=== PATIENT | female | born 1975 | race Caucasian/White ===

== ENCOUNTER 2023-04-03 12:19 | Outpatient (CLI) | payer BC, SELFPAY ==
[2023-04-07 13:37] LABS: FSH 33.3 mIU/mL (***)
== END 2023-04-03 12:20 | disposition home or self-care (01) ==
LOC: ANHLAB 12:20
PROVIDERS: Visit Provider Obstetrics & Gynecology
DX: N95.1 Menopausal and female climacteric states (principal)
CPT/HCPCS: 36415; 83001

== ENCOUNTER 2024-06-29 01:14 | Day surgery (SDC) | payer BC, SELFPAY ==
[2024-06-18 15:23] VITALS: BMI 34.1
--- OUTSIDE RECORDS SUMMARY | 2024-06-29 01:17 | XMS_ITS | Clinical Summary ---
Author Organization [facility] Address [address] [place] [address] Care Team Providers Care Executive Coach Name Role Phone Ofelia Boogie MD Primary Care Provider Allergies No known active allergies Medications loratadine (CLARITIN) 10 MG tablet Take 10 mg by mouth daily. Active Glucosamine-Tyler droit-Vit C-Mn (GLUCOSAMINE CHONDROITIN COMPLX) Cap Active Multiple Vitamin (MULTIVITAMIN) capsule Take 1 capsule by mouth daily. Active Family History Medical History Relation Comments Diabetes Father Hypertension Father Diabetes Mother Hypertension Mother Relation Status Comments Father Alive Mother Alive Social History Tobacco Use Types Packs/Day Years Used Date Smoking Tobacco: Never Smokeless Tobacco: Never Alcohol Use Standard Drinks/Week Comments Yes 0 (1 standard drink = 0.6 oz pur e alcohol) SOCIALLY Comments No Sex and Gender Information Value Date Recorded Sex Assigned at Not on file Legal Sex Female 3:21 PM CDT Gender Identity Not on file Sexual Orientation Not on file Last Filed Vital Signs Vital Sign Reading Time Taken Comments Blood Pressure 112/69 12/14/2021 11:50 AM CDT Pulse 65 12/14/2021 11:50 AM CDT Temperature 37 C (98.6 F) 12/14/2021 11:25 AM CDT Respiratory Rate 14 12/14/2021 11:50 AM CDT Oxygen Saturation 99% 12/14/2021 11:50 AM CDT Inhaled Oxygen Concentration - - Weight 86.2 kg (190 lb) 12/05/2021 1:26 PM CDT Height 167.6 cm (5' 6 ) 12/05/2021 1:26 PM CDT Body Mass Index 30.67 12/05/2021 1:26 PM CDT Plan of Treatment Health Maintenance Due Date Last Done Comments Annual Physical 1976 Hepatitis C 11/21/1991 Hepatitis B Vaccines (1 of 3 - 19+ 3-dose series) 1992 Mammogram Screening 2013 Cervical Cancer Screening Pa p Smear (Age 30 to 64) Every 3 Years 12/19/2019 12/18/2016 Cervical Cancer Screening Pa p with HPV Testing (Age 30 to 64) Every 5 Years 12/18/2021 12/18/2016 Cervical Cancer Screening wi th HPV 12/18/2021 COVID-19 Vaccine ( - 2023-2 5 season) 2023 03/03/2021, 02/21/2020, 01/31/2020 Pneumococcal Vaccine: 50+ Years (1 of 1 - PCV) 11/21/2023 Zoster Vaccines (1 of 2) 11/21/2023 DTaP, Tdap and Td Vaccines ( 3 - Td or Tdap) 10/21/2030 10/21/2020, 04/19/2010 Colorectal Cancer Screening Colonoscopy (10 Years) 12/15/2031 12/14/2021, 12/14/2021 Meningococcal B Vaccine Aged Out No l onger eligible based on patient's age to complete this topic Meningococcal Vaccine Aged Out No rosi krishna eligible based on patient's age to complete this topic RSV Immunizations Under 20 Months Aged Out No longer eligible b ased on patient's age to complete this topic Procedures Procedure Name Priority Date/Time Associated Diagnosis Comments COLONOSCOPY Routine 12/14/2021 10:05 AM CDT from Last 3 Months or Most Recently Relevant to Health Maintenance Insurance Dr. Eliza [address] Care Teams Executive Coach Relationship Specialty Start Date End Date Ofelia Boogie MD [address] [facility] [address] [place] [address] PCP - General FAMILY PRACTICE 12/14/21
[2024-06-29 07:45] VITALS: BP 118/90; PULSE 95; RESP 18; TEMP 36; O2SAT 100
[2024-06-29 07:49] LABS: BEDSIDEPREGUCG Negative (Negative)
--- NOTE | 2024-06-29 07:54 | P.PNAN_ITS ---
Anes - Initial Pre Proc Eval Procedure: Operation Date: 06/29/24 09:00 Proposed Procedures p Esophagogastroduodenoscopy & Colonoscopy - Collin Garner MD Date/Time: 06/29/24 07:54 Surgeon: Collin Garner MD Pre Op Diagnosis: Iron deficiency anemia, unspecified Patient Data Age: 48 Gender: F Height: 1.65 m Weight: 91.9 kg Last Vital Signs Temp 36.0 C L 06/29/24 07:45 Pulse 95 06/29/24 07:45 Resp 18 06/29/24 07:45 BP 118/90 06/29/24 07:45 Pulse Ox 100 06/29/24 07:45 O2 Del Method Room Air 06/29/24 07:45 Allergies Allergy/AdvReac Type Severity Reaction Status Date / Time No Known Allergies Allergy Verified 06/29/24 07:43 Home Medications Medication Instructions Recorded Confirmed Type levonorgestrel (Mirena) 1 device intrauterine ONCE 06/05/23 06/18/24 History docosahexaenoic acid 200 mg 200 mg PO DAILY 04/10/24 06/29/24 History capsule ( DHA) propranolol 10 mg tablet 10 mg PO Q12H 04/10/24 06/18/24 History topiramate 25 mg tablet (Topamax) 25 mg PO BID 04/10/24 06/29/24 History apraclonidine 0.5 % eye drops 1 drp EACH EYE DAILY 06/18/24 06/29/24 History Laboratory Tests 06/29/24 07:45 POC Urine HCG, Qual Negative (Negative) Patient hx anesthesia problems: none Family hx anesthesia problems: none Results Review: All pre-operative results and documents have been reviewed as part of the pre- operative evaluation. [facility] Past Medical History Medical History No active medical problems Surgical History Surgical History No significant past surgical history Family History Family History Other Alcoholism Carcinoma of colon Depression Diabetes mellitus Heart disease Hypertension Malignant neoplasm of prostate Thyroid cancer Social History Social History Smoking status: Never smoker Alcohol intake: current Substance use: never Substance use type: does not use Do You Feel Safe in your Home?: Yes Lack of Transportation: No Lack of Food: Never True Current Housing: I Have Housing Concerned About Future Housing: No Difficulty Paying Gas/Electric Bills: No Difficulty Paying for Meds: No Currently Unemployed: No Education: Bachelor's Degree Difficulty w/ Childcare or Family Care: No Anes - Eval Final PreProcedure Day of Procedure 06/29/24 07:54 Patient weight: obese Heart: regular rate and rhythm Lungs: clear to auscultation Airway: Mallampati scale class II Neurological: alert and oriented Last oral intake: >/= 8 hours ASA classification: II Emergent: no Anesthetic plan: proceed Anesthesia type and monitoring: general GIVS and standard monitoring Results Review: All pre-operative results and documents have been reviewed as part of the pre- operative evaluation. Informed Consent: The patient's anesthetic plan and its attendant risks and benefits were discussed with the patient/family/POA. Questions were solicited and answers provided to the satisfaction of the patient/family/POA.
[2024-06-29] MEDS: LACTATED RINGERS 1,000 ML 150 ML IV CONT (08:21)
--- NOTE | 2024-06-29 08:32 | PM.HPGS ---
History of Present Illness History of Present Illness Consent: Risks, benefits, and alternatives have been discussed and questions answered. Patient agrees to proceed with procedure. Chief complaint: Iron deficiency anemia, unspecified Narrative: Linda Patel is a 48 year old female with iwona, never had egd, colonoscopy 2021 Review of Systems Review of Systems: All systems reviewed & are unremarkable except as noted in HPI and below PMFSH Past Medical History Medical History No active medical problems Surgical History Surgical History No significant past surgical history Family History Family History Other Alcoholism Carcinoma of colon Depression Diabetes mellitus Heart disease Hypertension Malignant neoplasm of prostate Thyroid cancer Social History Social History Smoking status: Never smoker Alcohol intake: current Substance use: never Substance use type: does not use Do You Feel Safe in your Home?: Yes Lack of Transportation: No Lack of Food: Never True Current Housing: I Have Housing Concerned About Future Housing: No Difficulty Paying Gas/Electric Bills: No Difficulty Paying for Meds: No Currently Unemployed: No Education: Bachelor's Degree Difficulty w/ Childcare or Family Care: No Meds Home Medications and Allergies Home Medications Medication Instructions Recorded Confirmed Type levonorgestrel (Mirena) 1 device intrauterine ONCE 06/05/23 06/18/24 History docosahexaenoic acid 200 mg 200 mg PO DAILY 04/10/24 06/29/24 History capsule ( DHA) propranolol 10 mg tablet 10 mg PO Q12H 04/10/24 06/18/24 History topiramate 25 mg tablet (Topamax) 25 mg PO BID 04/10/24 06/29/24 History apraclonidine 0.5 % eye drops 1 drp EACH EYE DAILY 06/18/24 06/29/24 History Allergies Allergy/AdvReac Type Severity Reaction Status Date / Time No Known Allergies Allergy Verified 06/29/24 07:43 Vital Signs Vital Signs - 24 hr 06/29/24 07:45 Temperature 96.8 F L Pulse Rate 95 Respiratory Rate 18 Blood Pressure 118/90 Pulse Oximetry 100 Oxygen Delivery Room Air Exam Const: General: comfortable and no acute distress HENMT: Face/Nose/Sinus: Normal nares present Neck: Neck: no JVD Resp: Auscultation: clear to auscultation bilaterally Cardio: Rate: regular rate Rhythm: regular rhythm GI: Inspection: non-distended GI Palp: Yes Soft to palpation Skin: General skin exam: normal color Neuro: General: patient oriented x3 Speech: normal speech Other: gaston's palsy Extrem: General: normal to inspection Psych: Mental Status: mental status grossly normal Assessment and Plan Assessment and plan (1) IWONA (iron deficiency anemia): Qualifiers: Iron deficiency anemia type: unspecified iron deficiency Qualified Code(s): D50.9 - Iron deficiency anemia, unspecified Code(s): D50.9 - Iron deficiency anemia, unspecified Status: Acute Assessment and Plan: egd and colonoscopy denies overt gib
[2024-06-29] MEDS: BENZOCAINE (*SP) 60 ML SPRAY CAN (HURRICAINE) 1 SPRAY MUCOUS MEM (08:36)
--- NOTE | 2024-06-29 08:49 | SUR.OPER ---
EGD ended at 08, colon began at 0848.
[2024-06-29 08:58] VITALS: BP 98/68; PULSE 90; RESP 26; O2SAT 100
[2024-06-29 09:08] VITALS: BP 100/81; PULSE 71; RESP 20; O2SAT 100
[2024-06-29 09:18] VITALS: BP 108/74; PULSE 75; RESP 2; O2SAT 100
== END 2024-06-29 09:30 | disposition home or self-care (01) ==
PROVIDERS: Anesthesiology; PCP Family Medicine; Referring Provider Nurse Practitioner Family; Visit Provider Internal Medicine Gastroenterology
PROC: 0DJ08ZZ Inspection of Upper Intestinal Tract, Via Natural or Artificial Opening Endoscopic (ICD-10-PCS; CPT 45378; principal; 2024-06-29 09:00)
DX: C7A.8 Other malignant neuroendocrine tumors (principal); D50.9 Iron deficiency anemia, unspecified; K64.8 Other hemorrhoids; K31.7 Polyp of stomach and duodenum; E66.9 Obesity, unspecified; Z68.33 Body mass index [BMI] 33.0-33.9, adult
CPT/HCPCS: 45378; 43239; 43251; 88305; 88342; J2003; J2704; J7120

== ENCOUNTER 2024-08-11 12:05 | Outpatient (CLI) | payer BC, SELFPAY ==
--- OUTSIDE RECORDS SUMMARY | 2024-08-11 12:09 | XMS_ITS | Clinical Summary ---
Author Organization [address] Address [address] [place] [address] [place] [address] Care Team Providers Care Director Of Respiratory Therapy Name Role Phone Ofelia Boogie MD Primary Care Provi george Allergies No known active allergies Medications multivitamin capsule Take 1 capsule by mouth daily Active magnesium glycinate 100 mg magnesium capsule 4 Active apraclonidine (IOPIDINE) 0.5 % ophthalmic solutionIndicat ions:Rodriguez's palsy Administer 1 drop into both eyes 2 (two) times a day 5 mL 5 04/18/19 26 Active topiramate (TOPAMAX) 50 mg tablet Take 1 tablet (50 mg total) by mouth 2 (two) times a day 60 tablet 5 5 06/25/19 26 Active Active Problems Problem Noted Date Diagnosed Date 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 We discussed low carb and weight training Assessment & Plan (10/21/2020 9:09 AM CDT): BMI Follow-up includes: nutrition counseling. Well adult exam 11/06/2018 Overview (03/03/2024): Encouraged a healthy diet, and regular physical activity to her level Health Maintenance: Last PAP: through [place] Last mammogram: 09/03- [facility] 1 Last colonoscopy: 01/02- one hyperplastic polyp- consider repeat in 5-10 years Last Tdap: up to date Last shingles- reviewed starting series Last Flu: up to date Last COVID: encouraged Assessment & Plan (03/03/2024 2:06 PM TRACTOR ENGINE ASSEMBLER): Encouraged a healthy diet, and regular physical activity to her level Health Maintenance: Last PAP: through [place] Last mammogram: 09/03- [facility] 1 Last colonoscopy: 01/02- one hyperplastic polyp- consider repeat in 5-10 years Last Tdap: up to date Last shingles- reviewed starting series Last Flu: up to date Last COVID: encouraged Assessment & Plan (10/21/2020 9:08 AM CDT): Encouraged a healthy diet, and regular physical activity to her level Wear sun screen, seat belts No texting/drinking and driving Health Maintenance: Last PAP: through Dr Heath Last mammogram: 07/2019- scheduled Last colonoscopy/cologuard: check with insurance Last Tdap: today Last Flu: encouraged Last COVID: encouraged Assessment & Plan (11/06/2018 3:19 PM CDT): Work on healthy low carb diet Healthy activity for 30 minutes daily Wear sun screen, seat belts No texting/drinking and driving Health Maintenance: Last PAP:01/2018-normal Last mammogram: 03/2018 Last DEXA: @60 Last colonoscopy/cologuard: @50 Last Tdap: 2010 Last pneumonia/Prevnar@65: Last Shingrix:@50 Last Flu: yearly Tremor 11/06/2018 Assessment & Plan (11/06/2018 3:19 PM CDT): Perez tart with labs Consider neuro vs beta xochitl if symptoms persist Vitamin D deficiency 04/08/2017 Assessment & Plan (11/06/2018 3:21 PM CDT): Lab ordered Resolved Problems Problem Noted Date Diagnosed Date Resolved Date Overweight (BMI 25.0-29.9) 11/06/2018 0 10/21/2020 Assessment & Plan (11/06/2018 3:20 PM CDT): BMI Follow-up includes: nutrition counseling. Encounters Date Type Department Care Team Description 07/28/2024 1:00 PM CDT Therapy [facility] Physical Therapy [address] [place] [address] 1st Floor [address] [place] [id number] Camille Jung, PT Rodriguez's palsy (Primary Dx) 07/23/2024 Results Follow-Up [facility] Family Medicine [address] [phone] Ofelia Boogie MD Colonoscopy 07/09/2024 Telephone [facility] Ophthalmology [address] [facility] [address] [facility], [address] [place] [phone] Dereck Yen MD 07/07/2024 10:30 AM CDT Therapy [facility] Physical Therapy [address] [place] [address] 1st Floor [address] [place] [phone] Camille Jung, PT Rodriguez's palsy (Primary Dx) 07/07/2024 8:15 AM CDT Office Visit [facility] Ophthalmology [address], [address] [place] [address] Dereck Yen MD Facial nerve spasm (Primary Dx); Myogenic ptosis of right eyelid 06/24/2024 2:30 PM CDT Office Visit [facility] Neurology [address] [facility] [address] [place] [address] Juliane Mcguire NP Tremor (Primary Dx); Rodriguez's palsy 06/22/2024 2:00 PM CDT Therapy [facility] Physical Therapy [address] [facility] 6th [place] [address] [place] [phone] Camille Jung, PT Rodriguez's palsy (Primary Dx) 06/09/2024 10:30 AM CDT Therapy [facility] Physical Therapy [address] [place] [address] Camille Jung PT Rodriguez's palsy (Primary Dx) 06/09/2024 Plan of Care Documentation [facility] Physical Therapy [address] [place] [address] 06/04/2024 Telephone [facility] Ophthalmology [facility] [address] [place] [phone] Dereck Yen MD 06/02/2024 8:30 AM CDT Procedure visit [facility] Surgery [address] [place] [address] [place] [address] Kiki Colon MD Rodriguez's palsy 05/14/2024 Orders Only [facility] Surgery [address] [place] [address] [place] [address] Kiki Colon MD Rodriguez's palsy (Primary Dx) from Last 3 Months Immunizations Immunization Administration Dates Next Due Influenza, Quadrivalent, Spl it, Preservative Free, Intramuscular 01/21/2023 Influenza, Trivalent, Preservative Free, Intramu scular 12/04/2023 Influenza, Unspecified 11/11/2017 Tdap 10/21/2020,04/19/2010 Medical History Medical History Date Comments 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 Vitamin D deficiency Family History Medical History Relation Name Comments No Known Problems Brother No Known Problems Daughter Diabetes Father Hypertension Father Prostate cancer Father Heart attack Maternal Grandfather Diabetes Maternal Grandmother Arrhythmia Mother Diabetes Mother Hyperlipidemia Mother Hypertension Mother Colon cancer Paternal Grandfather Heart attack Paternal Grandmother Thyroid cancer Sister No Known Problems Son Relation Name Status Comments Brother Alive Daughter Alive Father Alive Maternal Grandfather Maternal Grandmother Mother Alive Paternal Grandfather Paternal Grandmother Sister Alive Son Alive Social History Tobacco Use Types Packs/Day Years Used Date Smoking Tobacco: Never Smokeless Tobacco: Never Tobacco Cessation:Counseling Given: Not Answered Alcohol Use Standard Drinks/Week Comments Yes 0 (1 standard drink = 0.6 oz pur e alcohol) AUDIT-C Answer Date Recorded Q1: How often do you have a drink containing alc ohol? Monthly or less 03/03/2024 Q2: How many drinks containi ng alcohol do you have on a typical day when you are drinking? 1 or 2 03/03/2024 Q3: How often do you have si x or more drinks on one occasion? Never 03/03/2024 PHQ-2 Answer Date Recorded PHQ-2 Total Score (If total score is 3 or more points, staff should administer the PHQ-9) 1 03/03/2024 PHQ-9 Answer Date Recorded PHQ-9 Total Score 5 03/03/2024 Comments No Sex and Gender Information Value Date Recorded Sex Assigned at Not on file Legal Sex Female 8:08 PM TRACTOR ENGINE ASSEMBLER Gender Identity Female 10/20/2020 7:24 PM CDT Sexual Orientation Straight 10/20/2020 7: 24 PM CDT Obstetrics History Para Term AB IAB SAB Ectopic Multiple Livin g Live Births 3 3 3 Date Outcome GA Total Labor Labor/2nd/3rd Weight Sex Type Anes PTL Thais A1 A5 Name Clin Term Term Term Last Filed Vital Signs Vital Sign Reading Time Taken Comments Blood Pressure 90/70 06/24/2024 2:22 PM CDT Pulse 103 06/24/2024 2:22 PM CDT Temperature 36.3 C (97.4 F) 03/03/2024 1:36 PM TRACTOR ENGINE ASSEMBLER Respiratory Rate 20 06/24/2024 2:22 PM CDT Oxygen Saturation 97% 06/24/2024 2:22 PM CDT Inhaled Oxygen Concentration - - Weight 93.4 kg (206 lb) 06/24/2024 2:22 PM CDT Height 167.6 cm (5' 6) 06/24/2024 2:22 PM CDT Body Mass Index 33.25 06/24/2024 2:22 PM CDT Plan of Treatment Health Maintenance Due Date Last Done Comments Hepatitis B Screening 11/21/1991 Cervical Cancer Screening 01/13/2019 01/13/2018 Covid-19 Vaccine ( season) 2023 03/03/2021, 02/21/2020, 01/31/2020 Zoster Vaccine (1 of 2) 11/21/2023 Breast Cancer Screening-Mammogram 08/20/2024 08/21/2023, 04/11/2022, 12/21/2020, Additional history exists Influenza Vaccine (#1) 2024 , 01/21/2023, 11/11/2017 Depression Screening 03/03/2025 03/03/2024, 03/03/2024, 10/21/2020, Additional history exists Regular Well Visit/Exam 18-64 03/03/2025 03/03/2024, 10/21/2020, 10/21/2020, Additional history exists DTaP/Tdap/Td Vaccine (3 - Td or Tdap) 10/21/2030 10/21/2020, 04/19/2010 Colon Cancer Screening-Colonoscopy 06/29/2034 06/29/2024, 12/14/2021 Hepatitis C Screening Completed 03/05/2024 Pneumococcal vaccine <65 Aged Out No longer eligible based on patient's age to complete this topic Procedures Procedure Name Priority Date/Time Associated Diagnosis Comments COLONOSCOPY Routine 06/29/2024 8:41 AM CDT HEPATITIS C ANTIBODY Routine 03/05/2024 8:40 AM TRACTOR ENGINE ASSEMBLER Need for hepatitis C screening test SCREENING MAMMOGRAM BILATERAL W SONU Schedule Routine, Read Routine (OP Routine) 08/21/2023 9:00 AM CDT Screening mammogram, encounter for HM PAP SMEAR WITH HPV Routine 01/13/2018 from Last 3 Months or Most Recently Relevant to Health Maintenance Results * Colonoscopy (06/29/2024 8:41 AM CDT) Anatomical Region Laterality Modality Other us Historical Provider ENDOSCOPY PROCEDURES Nhung l Result * Hepatitis C antibody Blood (03/05/2024 8:40 AM TRACTOR ENGINE ASSEMBLER) Hep C Ab NON-REACTI VE NON-REACT JUAN ALBERTO [facility] Comment: HCV antibody was non-reactive. There is no laboratory evidence of HCV infection. In most cases, no further action is required. However, if recent HCV exposure is suspected, a test for HCV RNA (test code 73833) is suggested. For additional information please refer to http://education.PLUMgrid.Guest of a Guest/faq/RLN51v5 (This link is being provided for informational/ educational purposes only.) Blood 03/05/2024 8:40 AM TRACTOR ENGINE ASSEMBLER 03/05/2024 8:43 AM TRACTOR ENGINE ASSEMBLER Narrative [facility] - 03/10/2024 5:11 AM TRACTOR ENGINE ASSEMBLER FASTING:YES FASTING: YES us Ofelia Boogie MD LAB MICROBIOLOGY - GENERAL ORDERABLES Final Result [facility] [address] [place] [address] * Screening Mammogram Bilateral W Sonu (08/21/2023 9:00 AM CDT) Anatomical Region Laterality Modality Breast Bilateral Mammography Impressions 08/21/2023 9:25 AM CDT BI-RADS ATLAS category (overall): 1 - Negative There is no mammographic evidence of malignancy. A 1 year screening mammogram is recommended. The patient has been or will be contacted. We recommend annual screening mammography for women at average risk of breast cancer beginning at age 40, based on guidelines of the [place] [employer] (ACR Practice Parameter for the Performance of Screening and Diagnostic Mammography) and [place] [employer]. For women with and elevated risk of breast cancer, please refer to the ACR Practice Parameter for specific screening recommendations. The patient will be entered into a reminder system with a target due date of 1 year for her next screening exam. Narrative 08/21/2023 9:25 AM CDT Screening Mammogram Bilateral W Sonu: 08/21/23 The study was acquired using full field digital technology and interpreted from soft copy. 2D digital mammographic views, as well as 3D digital tomosynthesis were performed in the CC and MLO projections. CLINICAL: Screening mammogram, encounter for. No relevant medical history has been documented for this patient. No known family history of breast cancer. COMPARISONS: 04/11/2022 Screening Mammogram Bilateral W Sonu 12/21/2020 Screening Mammogram Bilateral W Sonu 07/27/2019 Diagnostic Mammogram Left W Sonu 04/02/2018 Screening Mammogram Bilateral W Sonu 02/26/2017 Screening Mammogram Bilateral W Sonu BREAST TISSUE: The breasts have scattered areas of fibroglandular density. FINDINGS: No suspicious masses, suspicious calcifications, or other suspicious findings are seen within either breast. There has been no suspicious change. us Self Screening Mammogram IMG MAMMO PROCEDURES Fi nal Result * HM PAP SMEAR WITH HPV (01/13/2018) Pap smear Normal Historical Provider HEALTH MAINTENANCE Final Result from Last 3 Months or Most Recently Relevant to Health Maintenance [place] [address] [facility] [place] [address] [facility] [employer] [facility] [place] [address] Care Teams Director Of Respiratory Therapy Relationship Specialty Start Date End Date Ofelia Boogie MD [address] [facility] [place] [address] PCP - General 04/02/18
--- OUTSIDE RECORDS SUMMARY | 2024-08-11 12:09 | XMS_ITS | Clinical Summary ---
Author Organization [facility] Address [address] [place] [address] Care Team Providers Care Service Supervisor Name Role Phone Ofelia Boogie MD Primary [...] 1:26 PM CDT Height 167.6 cm (5' 6) 12/05/2021 1:26 PM CDT Body Mass Index [...] Relevant to Health Maintenance Insurance Dr. Eliza [address] Care Teams Service Supervisor Relationship Specialty Start Date End Date Ofelia Boogie MD [address] [facility] [address] [place] [address] PCP - General FAMILY PRACTICE 12/14/21
--- OUTSIDE RECORDS SUMMARY | 2024-08-11 12:09 | XMS_ITS | Encounter Summary ---
Author Organization [facility] Facility Care Team Providers Care Defensive Driving Instructor Name Role Phone Ofelia Boogie MD Primary Care Provi george Encounter Details Date Type Department Care Team (Latest Contact Info) Description 12/24/2016 Orders Only [facility] CLINCONV ProviderUrsula MD [address] [place] [id number] Social History Tobacco Use Types Packs/Day Years Used Date Smoking Tobacco: Never Assessed Comments Unknown Sex and Gender Information Value Date Recorded Sex Assigned at Not on file Legal Sex Female 8:08 PM VOLUNTEER RECRUITER Gender Identity Female 10/20/2020 7:24 PM CDT Sexual Orientation Straight 10/20/2020 7: 24 PM CDT documented as of this encounter Plan of Treatment Not on file documented as of this encounter Procedures Procedure Name Priority Date/Time Associated Diagnosis Comments SCAN - PATHOLOGY 04/16/2017 12:0 0 AM VOLUNTEER RECRUITER documented in this encounter Results * SCAN - PATHOLOGY (04/16/2017 12:00 AM VOLUNTEER RECRUITER) Narrative 04/16/2017 12:00 AM VOLUNTEER RECRUITER Ordered by an unspecified provider. Historical Provider Final Res ult documented in this encounter Visit Diagnoses Not on filedocumented in this encounter Care Teams Defensive Driving Instructor Relationship Specialty Start Date End Date Ofelia Boogie MD [address] [place] [address] PCP - General 04/02/18 documented as of this encounter
--- OUTSIDE RECORDS SUMMARY | 2024-08-11 12:09 | XMS_ITS | Referral Summary ---
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 [facility] [address] [facility], [address] [place] [address] Dereck Yen MD 07/07/2024 10:30 AM CDT Therapy [facility] Physical Therapy [id number] [place] [address] 1st Floor [address] [place] [address] Camille Jung, PT Rodriguez's palsy (Primary Dx) 07/07/2024 8:15 AM CDT Office Visit [facility] Ophthalmology [address] [facility] 2nd Floor, [address] [place] [address] Dereck Yen MD Facial nerve spasm (Primary Dx); Myogenic ptosis of right eyelid 06/24/2024 2:30 PM CDT Office Visit [facility] Neurology [facility] [address] [place] [phone] Juilane Mcguire NP Tremor (Primary Dx); Rodriguez's palsy 06/22/2024 2:00 PM CDT Therapy [facility] Physical Therapy [address] [place] [address] 6th [place] [address] [place] [address] Camille Jung, PT Rodriguez's palsy (Primary Dx) 06/09/2024 Plan of Care Documentation [facility] Physical Therapy [id number] [place] [address] Floor [address] [place] [phone] 06/09/2024 10:30 AM CDT Therapy [facility] Physical Therapy [address] [place] [address] [place] [phone] Camille Jung, PT Rodriguez's palsy (Primary Dx) 06/04/2024 Telephone [facility] Ophthalmology [address] [place] [address] Health [address]th [place] [address] Dereck Yen MD 06/02/2024 8:30 AM CDT Procedure visit [facility] Surgery [address] [place] [address] [place] [address] Kiki Colon MD Rodriguez's palsy 05/14/2024 Orders Only [facility] Surgery [address] [place] [address] [place] [address] Kiki Colon MD Rodriguez's palsy (Primary Dx) from Last 3 Months Allergies No known active allergies Medications multivitamin [...] 10/21/2020 Assessment & Plan (03/03/2024 2:31 PM ASPHALT PAVING SUPERVISOR): Chronic, with progression BMI Follow-up includes: nutrition counseling and exercise counseling. We discussed low carb and weight training Assessment & Plan (10/21/2020 9:09 AM CDT): BMI Follow-up includes: nutrition counseling. Well adult exam 11/06/2018 Overview (03/03/2024): Encouraged a healthy diet, and regular physical activity to her level Health Maintenance: Last PAP: through [place] Last mammogram: 09/03- Birads 1 Last colonoscopy: 01/02- one hyperplastic polyp- consider repeat in 5-10 years Last Tdap: up to date Last shingles- reviewed starting series Last Flu: up to date Last COVID: encouraged Assessment & Plan (03/03/2024 2:06 PM ASPHALT PAVING SUPERVISOR): Encouraged a healthy diet, and regular physical activity to her level Health Maintenance: Last PAP: through [place] Last mammogram: 09/03- [facility] 1 Last colonoscopy: [...] PM CDT): BMI Follow-up includes: nutrition counseling. Immunizations Immunization Administration Dates Next Due Influenza, Quadrivalent, Spl it, Preservative Free, Intramuscular 01/21/2023 Influenza, Trivalent, Preservative Free, Intramu scular 12/04/2023 Influenza, Unspecified 11/11/2017 Tdap 10/21/2020,04/19/2010 Social History Tobacco Use Types Packs/Day Years [...] on file Legal Sex Female 8:08 PM ASPHALT PAVING SUPERVISOR Gender Identity Female 10/20/2020 7:24 PM CDT Sexual Orientation Straight 10/20/2020 7: 24 PM CDT Last Filed Vital Signs Vital Sign Reading Time Taken Comments Blood Pressure 90/70 06/24/2024 2:22 PM CDT Pulse 103 06/24/2024 2:22 PM CDT Temperature 36.3 C (97.4 F) 03/03/2024 1:36 PM ASPHALT PAVING SUPERVISOR Respiratory Rate 20 06/24/2024 2:22 PM CDT Oxygen Saturation 97% 06/24/2024 2:22 PM CDT Inhaled Oxygen Concentration - - Weight 93.4 kg (206 lb) 06/24/2024 2:22 PM CDT Height 167.6 cm (5' 6) 06/24/2024 2:22 PM CDT Body Mass Index 33.25 06/24/2024 2:22 PM CDT Plan of Treatment Not on file Procedures Procedure Name Priority Date/Time Associated Diagnosis Comments COLONOSCOPY Routine 06/29/2024 8:41 AM CDT HEPATITIS C ANTIBODY Routine 03/05/2024 8:40 AM ASPHALT PAVING SUPERVISOR Need for hepatitis C screening test SCREENING MAMMOGRAM BILATERAL W SONU Schedule Routine, Read Routine (OP Routine) 08/21/2023 9:00 AM CDT Screening mammogram, encounter for HM PAP SMEAR WITH HPV Routine 01/13/2018 from Last 3 Months or Most Recently Relevant to Health Maintenance Results * Colonoscopy (06/29/2024 8:41 AM CDT) Anatomical Region Laterality Modality Other us Historical Provider ENDOSCOPY PROCEDURES Nhung lo Result * Hepatitis C antibody Blood (03/05/2024 8:40 AM ASPHALT PAVING SUPERVISOR) Hep C Ab NON-REACTI VE NON-REACT JUAN ALBERTO [facility] Comment: HCV antibody was non-reactive. There is no laboratory evidence of HCV infection. In most cases, no further action is required. However, if recent HCV exposure is suspected, a test for HCV RNA (test code 16266) is suggested. For additional information please refer to http://education.Newtron/faq/AAU80m5 (This link is being provided for informational/ educational purposes only.) Blood 03/05/2024 8:40 AM ASPHALT PAVING SUPERVISOR 03/05/2024 8:43 AM ASPHALT PAVING SUPERVISOR Narrative [facility] - 03/10/2024 5:11 AM ASPHALT PAVING SUPERVISOR FASTING:YES FASTING: YES us Ofelia Boogie MD LAB MICROBIOLOGY - GENERAL ORDERABLES Final Result [facility] [address] [place] [address] * Screening Mammogram Bilateral W Sonu (08/21/2023 [...] age 40, based on guidelines of the [employer] (ACR Practice Parameter for the Performance of Screening and Diagnostic Mammography) and [employer]. For women [...] * HM PAP SMEAR WITH HPV (01/13/2018) HM Pap smear Normal Historical Provider MD HEALTH MAINTENANCE Final Result from Last 3 Months or Most Recently Relevant to Health Maintenance [place] [address] [facility] [place] [address] [facility] [place] [address] [facility] [employer] [facility] [place] [address] Care Teams Dampener Relationship Specialty Start Date End Date Ofelia Boogie MD [address] [place] [id number] PCP - General 04/02/18
[2024-08-11 12:31] LABS: Hematocrit 46.1 % (37.0-47.0); Hemoglobin 14.7 g/dL (12.0-15.0); Mean Corpuscular HGB Conc 31.9 g/dl (32-36); Mean Corpuscular Hemoglobin 27.7 pg (26-34); Mean Corpuscular Volume 87.0 fl (80-100); Platelet Count Result 228 k/mm3 (150-375); Red Blood Count 5.30 M/mm3 (4.2-5.4); White Blood Count 6.1 K/mm3 (4.5-10.0)
[2024-08-11 12:41] LABS: Anion Gap 9 mmol/L (4-12); Blood Urea Nitrogen 16 mg/dL (7-17); Calcium 9.6 mg/dL (8.4-10.2); Carbon Dioxide 21 mmol/L (22-30); Chloride 109 mmol/L (98-107); Estimated Glomerular Filt Rate 58; Glucose 99 mg/dL (65-110); Potassium 4.4 mmol/L (3.4-5.0); Sodium 139 mmol/L (137-145)
[2024-08-11 12:48] LABS: Iron 72 ug/dL (37-170)
[2024-08-11 12:58] LABS: Percent Iron Saturation 20 % (20-50)
[2024-08-11 13:24] LABS: Ferritin 11.60 ng/mL (11.1-264)
== END 2024-08-11 12:06 | disposition home or self-care (01) ==
LOC: ANHLAB 12:07
PROVIDERS: PCP Family Medicine; Visit Provider Nurse Practitioner Family
DX: D50.9 Iron deficiency anemia, unspecified (principal)
CPT/HCPCS: 36415; 80048; 82728; 83540; 83550; 85027

== ENCOUNTER 2025-01-04 01:54 | Day surgery (SDC) | payer BC, SELFPAY ==
[2024-12-15 15:46] VITALS: BMI 30.3
--- OUTSIDE RECORDS SUMMARY | 2025-01-04 01:57 | XMS_ITS | Encounter Summary ---
Author Organization [facility] Facility Care Team Providers Care Director Industrial Relations Name Role Phone Ofelia Boogie MD Primary Care Provi george Encounter Details Date Type Department Care Team (Latest Contact Info) Description 12/24/2016 Orders Only [facility] CLINCONV ProviderUrsula MD [address] [place] [address] Social History Tobacco Use Types Packs/Day Years Used Date Smoking Tobacco: Never Assessed Comments Unknown Sex and Gender Information Value Date Recorded Sex Assigned at Not on file Legal Sex Female 8:08 PM COMPOSITION MIXER Gender Identity Female 10/20/2020 7:24 PM CDT Sexual Orientation Straight 10/20/2020 7: 24 PM CDT documented as of this encounter Plan of Treatment Not on file documented as of this encounter Procedures Procedure Name Priority Date/Time Associated Diagnosis Comments SCAN - PATHOLOGY 04/16/2017 12:0 0 AM COMPOSITION MIXER documented in this encounter Results * SCAN - PATHOLOGY (04/16/2017 12:00 AM COMPOSITION MIXER) Narrative 04/16/2017 12:00 AM COMPOSITION MIXER Ordered by an unspecified provider. Historical Provider Final Res ult documented in this encounter Visit Diagnoses Not on filedocumented in this encounter Care Teams Director Industrial Relations Relationship Specialty Start Date End Date Ofelia Boogie MD [address] [place] [address] PCP - General 04/02/18 documented as of this encounter
--- OUTSIDE RECORDS SUMMARY | 2025-01-04 01:57 | XMS_ITS | Clinical Summary ---
Author Organization [address] Address [address] [place] [address] [place] [address] Care Team Providers Care Lumber Tripper Name Role Phone Ofelia Boogie MD Primary Care Provi george Allergies No known active allergies Medications multivitamin capsule Take 1 capsule by mouth daily Active magnesium glycinate 100 mg magnesium capsule 4 Active apraclonidine (IOPIDINE) 0.5 % ophthalmic solutionIndica tions:Rodriguez's palsy Administer 1 drop into both eyes 2 (two) times a day 5 mL 5 04/18/19 26 Active Additional Information Patient not taking.Reported on 12/10/2024 topiramate (TOPAMAX) 50 mg tablet Take 1 tablet (50 mg total) by mouth 2 (two) times a day 180 tablet 3 5 12/11/19 26 Active topiramate (TOPAMAX) 50 mg tablet Take 1 tablet (50 mg total) by mouth 2 (two) times a day 60 tablet 5 5 12/11/19 25 Discontin ued(Reord er) Active Problems Problem Noted Date Diagnosed Date Essential tremor 12/10/2024 Facial nerve spasm 10/20/2024 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 We discussed low carb and weight training Assessment & Plan (10/21/2020 9:09 AM CDT): BMI Follow-up includes: nutrition counseling. Well adult exam 11/06/2018 Overview (03/03/2024): Encouraged a healthy diet, and regular physical activity to her level Health Maintenance: Last PAP: through [place] Last mammogram: 09/03- [facility] 1 Last colonoscopy: 01/02- one hyperplastic polyp- consider repeat in 5-10 years Last Tdap: up to date Last shingles- reviewed starting series Last Flu: up to date Last COVID: encouraged Assessment & Plan (03/03/2024 2:06 PM SENIOR GAME DESIGNER): Encouraged a healthy diet, and regular physical activity to her level Health Maintenance: Last PAP: through [place] Last mammogram: 09/03- [facility] 1 Last colonoscopy: [...] Encounters Date Type Department Care Team Description 12/15/2024 12:45 PM SENIOR GAME DESIGNER Procedure visit [facility] Ophthalmology [address] [facility] 2nd Floor, [address] [place] [address] Dereck Yen MD Facial nerve spasm (Primary Dx) 12/10/2024 3:00 PM CDT Office Visit [facility] Neurology [address] [place] [address] [address] [place] [phone] Juliane Mcguire NP Essential tremor (Primary Dx); Rodriguez's palsy 10/20/2024 7:45 AM CDT Office Visit [facility] Ophthalmology [address] [facility] 2nd Floor, [address] [place] [address] Dereck Yen MD Facial nerve spasm (Primary Dx) from Last 3 Months Immunizations [...] on file Legal Sex Female 8:08 PM SENIOR GAME DESIGNER Gender Identity Female 10/20/2020 7:24 PM CDT Sexual Orientation Straight 10/20/2020 7: 24 PM CDT Obstetrics History Para Term AB IAB SAB Ectopic Multiple Livin g Live Births 3 3 3 Date Outcome GA Total Labor Labor/2nd/3rd Weight Sex Type Anes PTL Thais A1 A5 Name Clin Term Term Term Last Filed Vital Signs Vital Sign Reading Time Taken Comments Blood Pressure 104/70 12/10/2024 3:02 PM CDT Pulse 102 12/10/2024 3:02 PM CDT Temperature 36.3 C (97.4 F) 03/03/2024 1:36 PM SENIOR GAME DESIGNER Respiratory Rate 20 06/24/2024 2:22 PM CDT Oxygen Saturation 98% 12/10/2024 3:02 PM CDT Inhaled Oxygen Concentration - - Weight 93.4 kg (206 lb) 12/10/2024 3:02 PM CDT Height 167.6 cm (5' 5.98) 12/10/2024 3:02 PM CD T Body Mass Index 33.27 12/10/2024 3:02 PM CDT Plan of Treatment Health Maintenance Due Date Last Done Comments Hepatitis B Screening 11/21/1991 Cervical Cancer Screening 01/13/2019 01/13/2018 Zoster Vaccine (1 of 2) 11/21/2023 Covid-19 Vaccine (4 - season) 2024 03/03/2021, 02/21/2020, 01/31/2020 Influenza Vaccine (#1) 2024 , 01/21/2023, 11/11/2017 Depression Screening 03/03/2025 03/03/2024, 03/03/2024, 10/21/2020, Additional history exists Regular Well Visit/Exam 18-64 03/03/2025 03/03/2024, 10/21/2020, 10/21/2020, Additional history exists Breast Cancer Screening-Mammogram 09/28/2025 09/28/2024, 08/21/2023, 04/11/2022, Additional history exists DTaP/Tdap/Td Vaccine (3 - Td or Tdap) 10/21/2030 10/21/2020, 04/19/2010 Colon Cancer Screening-Colonoscopy 06/29/2034 06/29/2024, 12/14/2021 Hepatitis C Screening Completed 03/05/2024 Pneumococcal vaccine <65 Aged Out No longer eligible based on patient's age to complete this topic Procedures Procedure Name Priority Date/Time Associated Diagnosis Comments FUNCTIONAL INJECTION, BOTULINUMTOXIN - FACIAL NERVE - OD - RIGHT EYE Routine 12/15/2024 12:57 PM SENIOR GAME DESIGNER Facial nerve spasm SCREENING MAMMOGRAM BILATERAL W SONU Schedule Routine, Read Routine (OP Routine) 09/28/2024 2:46 PM CDT Encounter for screening mammogram for malignant neoplasm of breast COLONOSCOPY Routine 06/29/2024 8:41 AM CDT HEPATITIS C ANTIBODY Routine 03/05/2024 8:40 AM SENIOR GAME DESIGNER Need for hepatitis C screening test HM PAP SMEAR WITH HPV Routine 01/13/2018 from Last 3 Months or Most Recently Relevant to Health Maintenance Results * Functional Injection, Botulinumtoxin - Facial Nerve - OD - Right Eye (12/15/2024 12:57 PM SENIOR GAME DESIGNER) Anatomical Region Laterality Modality Head Other Narrative 12/15/2024 12:57 PM SENIOR GAME DESIGNER Injection, Botulinumtoxin The injection site was prepped with a alcohol prep pad. Bacteriostatic saline at 5 units per 0.1ml. The medication administered today will not be billed to the patient or insurance. Post-op there were no complications during today's treatment. Result [facility] Dereck Yen MD OPH CLINIC PROCEDURES Final Result * Screening Mammogram Bilateral W Sonu (09/28/2024 2:46 PM CDT) Anatomical Region Laterality Modality Breast Bilateral Mammography Impressions 09/28/2024 3:49 PM CDT Bilateral No evidence of malignancy in either breast. OVERALL BI-RADS FINAL ASSESSMENT: 1 - Negative RECOMMENDATION: Recommend bilateral annual screening mammography. Narrative 09/28/2024 3:49 PM CDT EXAMINATION: Screening Mammogram Bilateral W Sonu: 09/28/2024 COMPARISON: Relevant prior studies available at the time of interpretation were reviewed, including the most recent mammogram on: 08/21/2023. TECHNIQUE: Mammography was performed with 2D and 3D digital breast tomosynthesis (DBT) images. CAD was utilized. BREAST PARENCHYMAL COMPOSITION: There are scattered areas of fibroglandular density. FINDINGS: Bilateral There is no suspicious mass, calcification, or architectural distortion in either breast. Ofelia Boogie MD IMG MAMMO PROCEDURE S Final Result * Colonoscopy (06/29/2024 8:41 AM CDT) Anatomical Region Laterality Modality Other Historical Provider ENDOSCOPY PROCEDURES Nhung l Result * Hepatitis C antibody Blood (03/05/2024 8:40 AM SENIOR GAME DESIGNER) Hep C Ab NON-REACTI VE NON-REACT JUAN ALBERTO [facility] Comment: HCV antibody was non-reactive. There is no laboratory evidence of HCV infection. In most cases, no further action is required. However, if recent HCV exposure is suspected, a test for HCV RNA (test code 56551) is suggested. For additional information please refer to http://education.Anzode/faq/NII23v5 (This link is being provided for informational/ educational purposes only.) Blood 03/05/2024 8:40 AM SENIOR GAME DESIGNER 03/05/2024 8:43 AM SENIOR GAME DESIGNER Narrative [facility] - 03/10/2024 5:11 AM SENIOR GAME DESIGNER FASTING:YES FASTING: YES Ofelia Boogie MD LAB MICROBIOLOGY - GENERAL ORDERABLES Final Result [facility] [address] [facility] [place] [address] * PAP SMEAR WITH HPV (01/13/2018) Pap smear Normal Historical Provider HEALTH MAINTENANCE Final Result from Last 3 Months or Most Recently Relevant to Health Maintenance Insurance [facility] FEDERAL [facility] FEDERAL [facility] [place] [address] [facility] FEDERAL [facility] [place] [address] Care Teams Lumber Tripper Relationship Specialty Start Date End Date Ofelia Boogie MD [address] [place] [address] [facility] - General 04/02/18
--- OUTSIDE RECORDS SUMMARY | 2025-01-04 01:57 | XMS_ITS | Clinical Summary ---
Author Organization [facility] Address [address] [place] [address] Care Team Providers Care Dispatcher Automobile Rental Name Role Phone Ofelia oBogie MD Primary Care Provider Allergies No known [...] of 3 - 19+ 3-dose series) 1992 Cervical Cancer Screening Pa p with HPV Testing (Age 30 to 64) Every 5 Years 11/21/2003 Mammogram Screening 2013 Cervical Cancer Screening Pa p Smear (Age 30 to 64) Every 3 Years 12/19/2019 12/18/2016 Cervical Cancer Screening wi th HPV 12/19/2019 Pneumococcal Vaccine: 50+ Years (1 of 1 - PCV) 11/21/2023 Zoster Vaccines (1 of 2) 11/21/2023 COVID-19 Vaccine (4 - 2024-2 6 season) 2024 03/03/2021, 02/21/2020, 01/31/2020 Influenza Adult (#1) 2024 11/11/2017 DTaP, Tdap and Td Vaccines ( 3 - Td or Tdap) 10/21/2030 10/21/2020, 04/19/2010 Colorectal Cancer Screening Colonoscopy (10 Years) 12/15/2031 12/14/2021, 12/14/2021 Hepatitis A Vaccines Aged Out No long er eligible based on patient's age to complete this topic Meningococcal B Vaccine Aged Out No l [...] Relevant to Health Maintenance [place] [address] [facility] Care Teams Dispatcher Automobile Rental Relationship Specialty Start Date End Date Ofelia Boogie MD [address] [facility] [address] [place] [address] PCP - General FAMILY PRACTICE 12/14/21
[2025-01-04 07:21] VITALS: BP 120/78; PULSE 80; RESP 20; TEMP 36.2; O2SAT 100; BMI 31.1
[2025-01-04] MEDS: LACTATED RINGERS 1,000 ML 150 ML IV CONT (07:36)
--- NOTE | 2025-01-04 08:00 | P.PNAN_ITS ---
Anes - Initial Pre Proc Eval Procedure: Operation Date: 01/04/25 08:30 Proposed Procedures p Esophagogastroduodenoscopy EGD - Collin Garner MD Date/Time: 01/04/25 08:00 Surgeon: Collin Garner MD Pre Op Diagnosis: Iron deficiency anemia, unspecified Patient Data Age: 49 Gender: F Height: 1.68 m Weight: 87.7 kg Last Vital Signs Temp 97.2 F L 01/04/25 07:21 Pulse 80 01/04/25 07:21 Resp 20 01/04/25 07:21 BP 120/78 01/04/25 07:21 Pulse Ox 100 01/04/25 07:21 O2 Del Method Room Air 01/04/25 07:21 Allergies Allergy/AdvReac Type Severity Reaction Status Date / Time No Known Allergies Allergy Verified 01/04/25 07:19 Home Medications ?Medication ?Instructions ?Recorded ?Confirmed ?Type levonorgestrel (Mirena) 1 device intrauterine ONCE 0 06/05/23 01/04/25 History docosahexaenoic acid 200 mg 200 mg PO DAILY 04/10/24 1 03/06/24 History capsule ( DHA) propranolol 10 mg tablet 10 mg PO Q12H 04/10/2412/15 History Held on 06/18/24. Instructions: Patient Condition topiramate 25 mg tablet (Topamax) 25 mg PO BID 5 01/04/25 History apraclonidine 0.5 % eye drops 1 drp EACH EYE DAILY 10/0501/04/25 History Patient hx anesthesia problems: none Family hx anesthesia problems: none Results Review: All pre-operative results and documents have been reviewed as part of the pre- operative evaluation. COUNTS INCLUDE 234 BEDS AT THE [facility] Past Medical History Medical History No active medical problems Surgical History Surgical History No significant past surgical history Family History Family History Other Alcoholism Carcinoma of colon Depression Diabetes mellitus Heart disease Hypertension Malignant neoplasm of prostate Thyroid cancer Social History Social History Smoking status: Never smoker Alcohol intake: current Substance use: never Substance use type: does not use Do You Feel Safe in your Home?: Yes Lack of Transportation: No Lack of Food: Never True Current Housing: I Have Housing Concerned About Future Housing: No Difficulty Paying Gas/Electric Bills: No Difficulty Paying for Meds: No Currently Unemployed: No Education: Bachelor's Degree Difficulty w/ Childcare or Family Care: No Living arrangements: with family Spiritual care concerns: No Anes - Eval Final PreProcedure Day of Procedure 01/04/25 08:00 Patient weight: obese Lungs: normal air movement Airway: Mallampati scale class II and special considerations (Pt w hx of [place] palsy, R facial weakness. ) Neurological: alert and oriented Last oral intake: >/= 8 hours ASA classification: II Emergent: no Anesthetic plan: proceed Anesthesia type and monitoring: general GIVS and standard monitoring Results Review: All pre-operative results and documents have been reviewed as part of the pre- operative evaluation. BMI 31, hx of essential tremors, neuroendocrine tumor of stomach, now for recheck. Informed Consent: The patient's anesthetic plan and its attendant risks and benefits were discussed with the patient/family/POA. Questions were solicited and answers prov ided to the satisfaction of the patient/family/POA.
--- NOTE | 2025-01-04 08:09 | PM.HPGS ---
History of Present Illness History of Present Illness Consent: Risks, benefits, and alternatives have been discussed and questions answered. Patient agrees to proceed with procedure. Chief complaint: Iron deficiency anemia, unspecified Narrative: Linda Patel is a 49 year old female with neuroendocrine tumor in stomach removed earlier endoscopically this year with negative margin Review of Systems Review of Systems: All systems reviewed & are unremarkable except as noted in HPI and below PMFSH Past Medical History Medical History (Updated 01/04/25 @ 08:11 by Collin Garner MD) History of well differentiated neuroendocrine tumor of stomach No active medical problems Surgical History Surgical History No significant past surgical history Family History Family History Other Alcoholism Carcinoma of colon Depression Diabetes mellitus Heart disease Hypertension Malignant neoplasm of prostate Thyroid cancer Social History Social History Smoking status: Never smoker Alcohol intake: current Substance use: never Substance use type: does not use Do You Feel Safe in your Home?: Yes Lack of Transportation: No Lack of Food: Never True Current Housing: I Have Housing Concerned About Future Housing: No Difficulty Paying Gas/Electric Bills: No Difficulty Paying for Meds: No Currently Unemployed: No Education: Bachelor's Degree Difficulty w/ Childcare or Family Care: No Living arrangements: with family Spiritual care concerns: No Meds Home Medications and Allergies Home Medications ?Medication ?Instructions ?Recorded ?Confirmed ?Type levonorgestrel (Mirena) 1 device intrauterine ONCE 06/05/23 01/04/25 History docosahexaenoic acid 200 mg 200 mg PO DAILY 04/10/24 01/04/25 History capsule ( DHA) propranolol 10 mg tablet 10 mg PO Q12H 04/10/24 12/15/24 History Held on 06/18/24. Instructions: Patient Condition topiramate 25 mg tablet (Topamax) 25 mg PO BID 04/10/24 01/04/25 History apraclonidine 0.5 % eye drops 1 drp EACH EYE DAILY 06/18/24 01/04/25 History Allergies Allergy/AdvReac Type Severity Reaction Status Date / Time No Known Allergies Allergy Verified 01/04/25 07:19 Vital Signs Vital Signs - 24 hr 01/04/25 07:21 Temperature 97.2 F L Pulse Rate 80 Respiratory Rate 20 Blood Pressure 120/78 Pulse Oximetry 100 Oxygen Delivery Room Air Exam Const: General: comfortable and no acute distress Resp: Auscultation: clear to auscultation bilaterally Cardio: Rate: regular rate Rhythm: regular rhythm GI: Inspection: non-distended GI Palp: Yes Soft to palpation Skin: General skin exam: normal color Extrem: General: normal to inspection Psych: Mental Status: mental status grossly normal Assessment and Plan Assessment and plan (1) History of well differentiated neuroendocrine tumor of stomach: Code(s): Z85.028 - Personal history of other malignant neoplasm of stomach Status: Acute Assessment and Plan: egd to reassess
[2025-01-04 08:18] VITALS: BP 100/60; PULSE 71; RESP 20; O2SAT 100
[2025-01-04 08:28] VITALS: BP 80/46; PULSE 68; RESP 18; O2SAT 100
--- NOTE | 2025-01-04 08:33 | SUR.PHASEII ---
Dr. Carter, anesthesia aware of blood pressure. No order received at this time.
[2025-01-04 08:38] VITALS: BP 100/53; PULSE 63; RESP 18; O2SAT 100
[2025-01-04 11:52] LABS: BEDSIDEPREGUCG Negative (Negative)
== END 2025-01-04 08:46 | disposition home or self-care (01) ==
PROVIDERS: PCP Family Medicine; Referring Provider Nurse Practitioner Family; Visit Provider Internal Medicine Gastroenterology
PROC: 0DJ08ZZ Inspection of Upper Intestinal Tract, Via Natural or Artificial Opening Endoscopic (ICD-10-PCS; CPT 43235; principal; 2025-01-04 08:30)
DX: Z08 Encounter for follow-up examination after completed treatment for malignant neoplasm (principal); D50.9 Iron deficiency anemia, unspecified; K44.9 Diaphragmatic hernia without obstruction or gangrene; G25.0 Essential tremor; E66.9 Obesity, unspecified; Z68.31 Body mass index [BMI] 31.0-31.9, adult; Z85.028 Personal history of other malignant neoplasm of stomach; Z80.0 Family history of malignant neoplasm of digestive organs; Z80.42 Family history of malignant neoplasm of prostate; Z80.8 Family history of malignant neoplasm of other organs or systems; Z82.49 Family history of ischemic heart disease and other diseases of the circulatory system
CPT/HCPCS: 43235; J2704; J7120